=== PATIENT | female | born 1970 | race Two or more races ===

== ENCOUNTER 2024-03-26 15:47 | Emergency (ER) | payer SELFPAY ==
--- NOTE | ~2024-03-26 | XR_ITS ---
EXAM: [id number] DATE: 03/26/2024 17:40 HISTORY: diffuse right knee pain x 15 days ? etiology . COMPARISON: None available. FINDINGS: Normal mineralization. No fracture or dislocation. No lytic or blastic lesion. Mild tricom partmental osteoarthritis. No erosion or periosteal change. Soft tissues within normal limits. IMPRESSION: No acute osseous finding in the right knee. Reviewed, dictated and finalized at location [facility]
[2024-03-26 16:44] VITALS: BP 129/72; PULSE 87; RESP 16; TEMP 36.9; O2SAT 98
--- NOTE | 2024-03-26 17:16 | ED.GENADULT ---
HPI - General Adult General Chief complaint: Extremity Injury, Lower Stated complaint: Right Leg Pain Time Seen by Provider: 03/26/24 17:16 Source: patient, RN notes reviewed and old records reviewed Mode of arrival: ambulatory Limitations: no limitations History of Present Illness HPI narrative: 53-year-old female presents to the [facility] with right medial knee pain. States that she fell 10-15 days ago. Mild swelling noted. No erythema ecchymosis. Does have good range of motion however discomfort with bending. Related Data Home Medications ?Medication ?Instructions ?Recorded ?Confirmed ?Last Taken ?Type No Home Medications 03/26/24 03/26/24 Unknown History Allergies Allergy/AdvReac Type Severity Reaction Status Date / Time No Known Allergies Allergy Verified 03/26/24 17:21 Review of Systems Review of Systems: All systems reviewed & are unremarkable except as noted in HPI and below Constitutional: Constitutional: Reports no additional constitutional complaints ENT: Reports system reviewed and no additional complaints, except as documented Cardiovascular: Cardiovascular: Reports no additional cardiovascular complaints, Denies chest pain and Denies dyspnea Respiratory: Respiratory: Reports no additional respiratory complaints, Denies chest congestion, Denies cough and Denies dyspnea Musculoskeletal: Musculoskeletal: Reports as per HPI, Reports arthralgias and Reports joint swelling Integumentary/Breasts: Skin/Breast: Reports system reviewed and no additional complaints, except as docu PMFSH Comments At the time of my signature, I reviewed and agree with the nursing past medical, surgical, social, and family history. There is no relevant family history pertinent to the patient complaint. Exam Const: General: cooperative, healthy appearing, comfortable, no acute distress, well developed, alert and well nourished Nutritional Appearance: well nourished Orientation/consciousness: patient oriented x3 Limitations: no limitations HENMT: Head: normal to inspection Face and sinus: normal facial exam and face symmetric Eyes: General: appearance normal, both eyes and all related structures Neck: Neck: normal visual inspection, full ROM, no lymphadenopathy and no meningeal signs Chest: Chest palpation & inspection: normal inspection of the chest Resp: Effort & Inspection: normal respiratory effort and able to speak in complete sentences Cardio: Rate: regular rate Skin: General skin exam: normal color and no rashes or lesions noted Neuro: General: patient oriented x3, gait normal, moves all extremities and no meningeal signs Cognition (Neuro): normal cognition Speech: normal speech Gait exam (Neuro): Normal gait present Extrem: General: normal to inspection, full ROM, capillary refill normal and normal gait Right lower extremity: knee Details: tenderness (Medial aspect), swelling (Medial aspect, lower aspect) and normal ROM; no abrasions, no lacerations, no ecchymosis, no foreign bodies, no penetrating wound and no deformity and lower leg Details: normal to inspection; no tenderness and no localized swelling Psych: Appearance: grossly normal and well kempt Mental Status: mental status grossly normal Speech and movement: Normal speech and movement present and Clear speech present Affect: normal affect Attitude: cooperative Course Course Level of Care: Express Care Visit Vital Signs Vital signs: Vital Signs Temperature 98.4 F 03/26/24 16:44 Pulse Rate 87 03/26/24 16:44 Respiratory Rate 16 03/26/24 16:44 Blood Pressure 129/72 03/26/24 16:44 Pulse Oximetry 98 03/26/24 16:44 Oxygen Delivery Room Air 03/26/24 16:44 Temperature 98.4 F 03/26/24 16:44 Pulse Rate 87 03/26/24 16:44 Respiratory Rate 16 03/26/24 16:44 Blood Pressure 129/72 03/26/24 16:44 Pulse Oximetry 98 03/26/24 16:44 Oxygen Delivery Room Air 03/26/24 16:44 Reviewed Medical Decision Making MDM Narrative Medical decision making narrative: Patient sitting comfortably in exam room. Nontoxic, vitals stable. Patient in no acute distress Patient presents for continued right knee pain after falling 10-15 days ago. Still swollen. X-ray negative for acute finding Patient appropriate for outpatient treatment and follow-up Discharge instructions reviewed with patient, as well as provided in writing per nursing staff. The instructions also include specific and strict return/GO TO THE ER as well as f/u information. All questions have been answered, and the patient deny any further questions with discharge and discharge plan. Some parts of this dictation were generated by voice recognition software and may contain typographical and/or grammatical inaccuracies. Differential Diagnosis Differential Diagnosis: Knee effusion, knee contusion, knee fracture Medical Records Medical records reviewed: Yes I reviewed the external patient's medical records. Vital Signs Vital Signs: Vital Signs Temperature 98.4 F 03/26/24 16:44 Pulse Rate 87 03/26/24 16:44 Respiratory Rate 16 03/26/24 16:44 Blood Pressure 129/72 03/26/24 16:44 Pulse Oximetry 98 03/26/24 16:44 Oxygen Delivery Room Air 03/26/24 16:44 Temperature 98.4 F 03/26/24 16:44 Pulse Rate 87 03/26/24 16:44 Respiratory Rate 16 03/26/24 16:44 Blood Pressure 129/72 03/26/24 16:44 Pulse Oximetry 98 03/26/24 16:44 Oxygen Delivery Room Air 03/26/24 16:44 Reviewed Lab Data Lab results reviewed: Yes I reviewed the patient's lab results. Labs: Reviewed Critical Care Time Critical Care Time Critical Care Time: No Discharge Plan Discharge Clinical Impression: Effusion of knee joint right, Polyarticular osteoarthritis Contusion of knee, right Qualifiers: Encounter type: initial encounter Qualified Code(s): S80.01XA - Contusion of right knee, initial encounter Patient Disposition: Home, Self-Care Condition: Stable Instructions: Antibiotic Form, Osteoarthritis (ED), Swollen Knee Joint (ED) Additional Instructions: Rest, ice and elevate every 2-3 hours for 15-20 minutes while awake Take Motrin alternating with Tylenol as needed for pain Your Xray did not show a fracture. Wear good supportive shoes at all times. Ice should be applied to help reduce swelling. It can be used for 20 to 30 minutes, every 2-3 hours while awake. Do not apply ice directly to your skin. You can wear a knee brace or an Amadou wrap to help support your injury You can alternate ibuprofen 600mg and Tylenol 650mg every 4 hours as needed for pain Please schedule a follow-up visit with your personal physician for further evaluation and treatment within 2 weeks especially if symptoms persist. For new or worsening symptoms go directly to the emergency room Patient Language: Marcus Prescriptions: No Action No Home Medications Follow-up/Referrals: PHYSICIAN,PLUG MAKING OPERATOR [Primary Care Provider] - Stand Alone Forms: Work/School Release IP Time of Disposition: 17:56
== END 2024-03-26 18:05 | disposition home or self-care (01) ==
PROVIDERS: Emergency Provider Nurse Practitioner
DX: S80.01XA Contusion of right knee, initial encounter (principal); M15.9 Polyosteoarthritis, unspecified; M25.461 Effusion, right knee; W19.XXXA Unspecified fall, initial encounter
CPT/HCPCS: 73560; 99203; G0463